=== PATIENT | male | born 1975 | race Two or more races ===

== ENCOUNTER 2022-04-14 13:01 | Inpatient (IN) | payer OTHER ==
[2022-04-14 13:41] VITALS: BMI 25.8
[2022-04-14] MEDS ORDERED: LOPERAMIDE HCL 2 MG CAPSULE PO PRN (15:18)
[2022-04-14] MEDS ORDERED: BENZOCAINE/MENTHOL (CHLORASEPTIC ) LOZENGE MM PRN (15:18)
[2022-04-14] MEDS ORDERED: ONDANSETRON *ODT* 4 MG TABLET SL PRN (15:18)
[2022-04-14] MEDS ORDERED: MAG HYDROX/AL HYDROX/SIMETH 30 ML UNIT-DOSE CUP PO PRN (15:18)
[2022-04-14] MEDS ORDERED: MAGNESIUM CITRATE 300 ML BOTTLE PO PRN (15:18)
[2022-04-14] MEDS ORDERED: BISMUTH SUBSALICYLATE 524 MG/30 ML PO PRN (15:18)
[2022-04-14] MEDS ORDERED: IBUPROFEN 400 MG TABLET (FP) PO PRN (15:18)
[2022-04-14] MEDS ORDERED: IBUPROFEN 600 MG TABLET (FP) PO PRN (15:18)
[2022-04-14] MEDS ORDERED: METHOCARBAMOL 500 MG TABLET PO PRN (15:18)
[2022-04-14] MEDS ORDERED: ACETAMINOPHEN 325 MG TABLET (FP) PO PRN ×2 (15:18)
[2022-04-14] MEDS ORDERED: DICYCLOMINE HCL 10 MG CAPSULE PO PRN (15:18)
[2022-04-14] MEDS ORDERED: MAGNESIUM HYDROX 2400MG/30ML ORAL SUSPENSION 30 ML CUP PO PRN (15:18)
[2022-04-14] MEDS: hydrOXYzine PAMOATE 25 MG CAPSULE (FP) PO SCH ×2 (19:20→22:13)
[2022-04-14] MEDS ORDERED: THIAMINE HCL 100 MG TABLET (FP) PO SCH (22:00)
[2022-04-14] MEDS ORDERED: MELATONIN 5 MG TABLETS PO SCH (22:00)
[2022-04-15] MEDS: hydrOXYzine PAMOATE 25 MG CAPSULE (FP) PO SCH (05:29)
[2022-04-15 09:45] VITALS: BP 154/98; PULSE 69; TEMP 97.7
[2022-04-15] MEDS ORDERED: PRENATAL VITAMINS W/ FOLIC ACID TABLET (FP) PO SCH (10:00)
[2022-04-15 14:26] LABS: HEMATOCRIT 39.8 % (35.4-49); HEMOGLOBIN 13.1 GM/dL (11.7-16.9); MCH 27.6 pg (25.7-33.7); MCHC 32.9 g/dl (32.0-35.9); MEAN CELL VOLUME 83.9 fl (80-96); MEAN PLT VOLUME 7.8 fl (7.5-11.1); PLATELET COUNT 261 10^3/uL (134-434); RBC 4.75 M/mm3 (4.00-5.60); RDW 14.3 % (11.9-15.9); WHITE BLOOD COUNT 5.2 K/mm3 (4.0-10.0)
[2022-04-15 15:00] LABS: ALBUMIN 3.8 g/dl (3.4-5.0); BLOOD UREA NITROGEN 9.2 mg/dL (7-18); CALCIUM 9.3 mg/dL (8.5-10.1)
[2022-04-15 15:03] LABS: CREATININE 0.7 mg/dL (0.55-1.3); TOT PROT 7.6 g/dl (6.4-8.2)
[2022-04-15 15:04] LABS: BILIRUBIN,TOTAL 1.8 mg/dL (0.2-1)
== END 2022-04-15 09:28 | disposition home or self-care (01) | DRG 775 ==
LOC: YASAS 13:01 → Y6N 14:41
PROVIDERS: ADMIT Allergy & Immunology; ATTEND Surgery
PROC: HZ2ZZZZ Detoxification Services for Substance Abuse Treatment (ICD-10-PCS; principal; 2022-04-14)
DX: F10.20 Alcohol dependence, uncomplicated (principal); Z28.310 Unvaccinated for COVID-19; Z28.21 Immunization not carried out because of patient refusal
CPT/HCPCS: 36415; 80053; 85027; 86780; C9803-CS; U0003; U0005